=== PATIENT | male | born 1985 | race American Indian/Alaskan Native ===

== ENCOUNTER 2020-10-09 01:50 | Emergency (ER) | payer OTHER, SELFPAY ==
--- NOTE | 2020-10-09 02:33 | Emergency Department Report ---
ED Psych HPI - General Chief Complaint: Psych Stated Complaint: MH Time Seen by Provider: 10/09/20 02:30 Source: patient, EMS Mode of arrival: Ambulatory Limitations: No Limitations - History of Present Illness Initial Comments: Patient is a 35-year-old male who presents emergency room for a mental health evaluation. Patient states that he got into an argument with his little brother and made threats of killing him and his family called the police. The police then called EMS to transport the patient to the hospital for mental health evaluation since he made homicidal threats. Patient states he was just angry. Patient states he states he was getting kill his little brother. Patient denies suicidal homicidal ideations at this time. Patient states he does not want to hurt anybody but he was in agreement. Patient denies hallucinations. Patient states he is having racing thoughts now. Patient denies recent travel. Patient denies recent international travel. Patient denies exposure to the novel coronavirus. Patient denies sick contacts. Patient denies fever and chills. Patient denies cough. Patient denies diarrhea. Patient denies coming in contact with anybody with symptoms of the novel coronavirus. Complaint: other -: Sudden Associated Psychiatric Symptoms: racing thoughts History of same: No Quality: constant Improves With: none Worsens With: none Context: significant life stressor Associated Symptoms: denies: confusion, headache, shortness of breath, nausea, vomiting, syncope, insomnia Treatments Prior to Arrival: placed on mental he - Related Data Allergies Allergy/AdvReac Type Severity Reaction Status Date / Time No Known Allergies Allergy Unverified 10/09/20 02:40 ED Review of Systems ROS: Stated complaint: MH Other details as noted in HPI Constitutional: denies: chills, fever Eyes: denies: eye pain, eye discharge, vision change ENT: denies: ear pain, throat pain Respiratory: denies: cough, shortness of breath, wheezing Cardiovascular: denies: chest pain, palpitations Endocrine: no symptoms reported Gastrointestinal: denies: abdominal pain, nausea, diarrhea Genitourinary: denies: urgency, dysuria Musculoskeletal: denies: back pain, joint swelling, arthralgia Skin: denies: rash, lesions Neurological: denies: headache, weakness, paresthesias Psychiatric: as per HPI. denies: anxiety, depression Hematological/Lymphatic: denies: easy bleeding, easy bruising ED Past Medical Hx - Past Medical History Previous Medical History?: Yes Hx Psychiatric Treatment: Yes - Surgical History Past Surgical History?: No - Family History Family history: no significant - Social History Smoking Status: Never Smoker Substance Use Type: None ED Physical Exam - General Limitations: No Limitations General appearance: alert, in no apparent distress - Head Head exam: Present: atraumatic, normocephalic - Eye Eye exam: Present: normal appearance - ENT ENT exam: Present: mucous membranes moist - Neck Neck exam: Present: normal inspection - Respiratory Respiratory exam: Present: normal lung sounds bilaterally. Absent: respiratory distress - Cardiovascular Cardiovascular Exam: Present: regular rate, normal rhythm. Absent: systolic murmur, diastolic murmur, rubs, gallop - GI/Abdominal GI/Abdominal exam: Present: soft, normal bowel sounds - Rectal Rectal exam: Present: deferred - Extremities Exam Extremities exam: Present: normal inspection - Back Exam Back exam: Present: normal inspection - Neurological Exam Neurological exam: Present: alert, oriented X3 - Psychiatric Psychiatric exam: Present: flat affect. Absent: homicidal ideation, suicidal ideation - Skin Skin exam: Present: warm, dry, intact, normal color. Absent: rash ED Course Vital Signs 10/09/20 10/09/20 10/09/20 02:36 02:41 09:04 Temperature 98.2 F 99.0 F Pulse Rate 77 69 Respiratory 20 20 20 Rate Blood Pressure 118/61 114/68 [Right] O2 Sat by Pulse 99 99 99 Oximetry - Reevaluation(s) Reevaluation #1: Patient is medically clear. Patient remained in the ER as an ER hold until the patient is cleared by psychiatry team. 10/09/20 06:16 ED Medical Decision Making - Lab Data Result diagrams: 10/09/20 02:45 10/09/20 02:45 - Medical Decision Making Patient is a 35-year-old male with unknown psychiatric history that presents emergency room for mental health evaluation. Patient brought in by EMS because his family called the police because he was making homicidal threats towards his little brother. The police then called EMS to take the patient to the hospital. Patient had labs done which were essentially unremarkable. Patient is medically cleared. Patient will be in the ER as an ER hold until the patient is cleared by psychiatry mental health team. Patient final disposition will come from our psychiatry team. - Differential Diagnosis Homicidal ideation, aggressive behavior, Critical care attestation.: If time is entered above; I have spent that time in minutes in the direct care of this critically ill patient, excluding procedure time. ED Disposition Clinical Impression: Homicidal ideation, Aggressive behavior Disposition: DC-01 TO HOME OR SELFCARE Is pt being admited?: No Does the pt Need Aspirin: No Condition: Stable Additional Instructions: Professional and Agency Contacts To help Resolve Crises (07/11) [place] Crisis Line: Suicide Prevention Line: Crisis Text Line: Text START to [phone] Emergency: 911 Outpatient [facility] Behavioral Health Resources: KIRAN: [facility] [address], [place] [address] BRYCE: [facility] [address] [place] [address] Monday thru Monday - 8am - 5pm Call to schedule an assessment for mental health and substance abuse programs [place]SELIA: [facility] Address: [address] [place] [address] Monday thru Monday- 7am-2pm [facility] Address: [address] [place] [address] Monday thru Monday: 8:30AM-5PM Referrals: PRIMARY CARE, [Primary Care Provider] - 3-5 Days Time of Disposition: 06:15
[2020-10-09 03:01] LABS: Basophils % (Auto) 0.4 % (0.0-1.8); Eosinophils # (Auto) 0.1 K/mm3 (0.0-0.4); Eosinophils % (Auto) 0.9 % (0.0-4.3); Hematocrit 42.6 % (35.5-45.6); Hemoglobin 14.9 gm/dl (11.8-15.2); Lymphocytes # (Auto) 1.5 K/mm3 (1.2-5.4); Lymphocytes % (Auto) 22.8 % (13.4-35.0); Mean Corpuscular HGB Conc 35 % (32-34); Mean Corpuscular Volume 102 fl (84-94); Monocytes # (Auto) 0.8 K/mm3 (0.0-0.8); Monocytes % (Auto) 12.3 % (0.0-7.3); Platelet Count 265 K/mm3 (140-440); Red Blood Count 4.16 M/mm3 (3.65-5.03); Red Cell Distribution Width 13.2 % (13.2-15.2)
[2020-10-09 03:19] LABS: BUN/Creatinine Ratio 13; Blood Urea Nitrogen 13 mg/dL (9-20); Calcium 9.4 mg/dL (8.4-10.2); Hemolysis Index 11
[2020-10-09 08:01] LABS: Amphetamine Screen,Urine Negative; Benzodiazepines Screen,Urine Negative; Cocaine Screen,Urine Negative; Methadone Screen,Urine Negative; Opiate Screen,Urine Negative
[2020-10-09 08:23] LABS: Cannabinoid Screen,Urine PRESUMPTIVE POSITIVE
[2020-10-09 08:40] LABS: Bacteria,Urine 1+ /HPF (Negative); Bilirubin,Urine NEG (Negative); Blood,Urine NEG (Negative); Color,Urine Yellow (Yellow); Mucus,Urine 3+ /HPF
--- NOTE | 2020-10-09 11:18 | Event Note ---
S: No concerns O: Stable vital signs, patient appears well and comfortable A: homicidal ideation, marijuana dependence. Patient is medically clear for psychiatric care P: Awaiting treatment recommendations by psychiatric team
--- NOTE | 2020-10-09 11:57 | Progress Note ---
Subjective - Reason for Consult Consult date: 10/09/20 Reason for consult: Homicidal Ideation - Chief Complaint Chief complaint: Per Nurse Note: 0500-Have asked patient several times for urine specimen and explained why needed. Patient begins to complain loudly and gets up and starts pacing across room and then lays back down and goes to sleep. Mental Status Exam - Vital signs Last Vital Signs Temp 99.0 F 10/09/20 09:04 Pulse 69 10/09/20 09:04 Resp 20 10/09/20 09:04 BP 114/68 10/09/20 09:04 Pulse Ox 99 10/09/20 09:04
--- NOTE | 2020-10-09 12:09 | Consultation ---
History of Present Illness - Reason for Consult Consult date: 10/09/20 Reason for consult: Hi - Chief Complaint Chief complaint: Per ED Note: Patient is a 35-year-old male who presents emergency room for a mental health evaluation. Patient states that he got into an argument with his little brother and made threats of killing him and his family called the police. The police then called EMS to transport the patient to the hospital for mental health e valuation since he made homicidal threats. Patient states he was just angry. Patient states he states he was getting kill his little brother. Patient denies suicidal homicidal ideations at this time. Patient states he does not want to hurt anybody but he was in agreement. Patient denies hallucinations. Patient states he is having racing thoughts now. Ernst Lowry is a 35 year old male who presents to the Ed for homicidal ideation Patient was seen resting in the room. Patient is talkative and paranoid, he states " I let my anger get the best of me." Patient states he states he was diagnosed with schizophrenia but he has never taken psychotropic medications. Patient states " the government give people to arrest.' He reports talking to himself and when asked about hallucinations he states " I don't see or hear things, I did not say that." He denies suicidal/ homicidal ideation. PAST PSYCHIATRIC HISTORY: Diagnoses: schizophrenia Suicide attempts or Self-harm behavior: denies Prior psychiatric hospitalizations: yes Substance Abuse history: denies Previous psychiatric medications tried: noncompliant Outpatient treatment: n/a PAST MEDICAL HISTORY: n/a Family Psychiatric History: None reported or documented SOCIAL HISTORY Marital Status: no Living Arrangements: n/a Employment Status: n/a Access to guns/weapons: n/a Education: n/a History of Abuse: n/a Legal History: n/a REVIEW OF SYSTEMS ROS cannot be reliably obtained from the patient due to his confusion MENTAL STATUS EXAMINATION General Appearance and Behavior: Age appropriate, good hygiene, wearing appropriate clothes, uncooperative polite with questioning. Cooperation: cooperative Psychomotor Behavior: Psychomotor agitation Mood: angry Affect and affective range: irritable Thought Process: circumstantial Thought Content: Paranoid Speech: Normal volume, Regular rate and rhythm Intellectual Functioning: Poor Suicidal Ideation: Denied Homicidal Ideation: Denied Impulse Control: impaired Insight and Judgment: limited Memory: memory impaired Attention:Distractible Orientation: Alert and oriented Diagnoses:Schizophrenia F20.9 Current Visit: Yes Status: Acute RECOMMENDATIONS 1013 start Risperidal 1mg po BID Start Trazodone 50mg po qhs Start Vistaril 25mg po BID Risks, benefits and alternatives of medications discussed with the patient, questions answered and consent obtained from patient. PSYCHOTHERAPY: Supportive psychotherapy provided MEDICAL: Per primary team DELIRIUM PRECAUTIONS: Please re-orient patient frequently, keep lights on during the day, and minimize benzodiazepines and opiates as these medications could worsen patient's confusion. 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 Please contact with any questions and/or concerns. Medications and Allergies Allergies Allergy/AdvReac Type Severity Reaction Status Date / Time No Known Allergies Allergy Unverified 10/09/20 02:40 Home Medications Medication Instructions Recorded Confirmed Last Taken Type No Known Home Medications [No 10/10/20 10/10/20 Unknown History Reported Home Medications] Mental Status Exam - Vital signs Last Vital Signs Temp 99.0 F 10/09/20 09:04 Pulse 69 10/09/20 09:04 Resp 20 10/09/20 09:04 BP 114/68 10/09/20 09:04 Pulse Ox 99 10/09/20 09:04 Results Result Diagrams: 10/09/20 02:45 10/09/20 02:45 Abnormal lab results 10/09/20 10/09/20 10/09/20 Range/Units 02:45 02:45 02:45 MCV 102 H (84-94) fl MCH 36 H (28-32) pg MCHC 35 H (32-34) % [place] % (Auto) 12.3 H (0.0-7.3) % Ur Specific [place] (1.003-1.030) Urine WBC (Auto) (0.0-6.0) /HPF Salicylates < 0.3 L (2.8-20.0) mg/dL Acetaminophen 5.0 L (10.0-30.0) ug/mL 10/09/20 Range/Units Unknown MCV (84-94) fl MCH (28-32) pg MCHC (32-34) % [place] % (Auto) (0.0-7.3) % Ur Specific [place] 1.031 H (1.003-1.030) Urine WBC (Auto) 46.0 H (0.0-6.0) /HPF Salicylates (2.8-20.0) mg/dL Acetaminophen (10.0-30.0) ug/mL All other labs normal.
[2020-10-09] MEDS: risperiDONE 1 MG TAB PO SCH (22:19)
[2020-10-10 09:10] VITALS: BP 129/80
[2020-10-10] MEDS: risperiDONE 1 MG TAB PO SCH (09:59)
[2020-10-10] MEDS ORDERED: LIDOCAINE-MPF (1%) 10 MG/1 ML VIAL 5 ML INFILTRATI ONE (10:33)
[2020-10-10] MEDS ORDERED: AZITHROMYCIN 1 GM ORAL PWDR PACKET PO ONE (10:33)
--- NOTE | 2020-10-10 10:36 | Event Note ---
Date: 10/10/20 ER medical records reviewed and appreciated, psychiatric recommendations reviewed and appreciated, nursing notes reviewed and appreciated. Laboratory studies, vital signs are reviewed and appreciated. The patient is currently awake, laying down on chair, calm and cooperative. He states states he is not having physical pain. He denies acute medical complaints at this time. Laboratory studies are reviewed and appreciated. Urinalysis specifically is reviewed and appreciated. Given large leukocyte esterase, 46 WBC, young age, this is likely chlamydia cystitis. He will be treated empirically with ceftriaxone and azithromycin. Culture pending at this time. Vital Signs 10/09/20 10/09/20 10/09/20 02:36 02:41 09:04 Temperature 98.2 F 99.0 F Pulse Rate 77 69 Respiratory 20 20 20 Rate Blood Pressure 118/61 114/68 [Right] O2 Sat by Pulse 99 99 99 Oximetry 10/09/20 10/09/20 10/10/20 20:20 20:22 09:09 Temperature 98.6 F 96.8 F L Pulse Rate 72 94 H Respiratory 20 20 20 Rate Blood Pressure 122/72 129/80 [Right] O2 Sat by Pulse 99 99 98 Oximetry Lab Results 10/09/20 10/09/20 10/09/20 Range/Units 02:45 02:45 02:45 WBC 6.8 (4.5-11.0) K/mm3 RBC 4.16 (3.65-5.03) M/mm3 Hgb 14.9 (11.8-15.2) gm/dl Hct 42.6 (35.5-45.6) % MCV 102 H (84-94) fl MCH 36 H (28-32) pg MCHC 35 H (32-34) % RDW 13.2 (13.2-15.2) % Plt Count 265 (140-440) K/mm3 Lymph % (Auto) 22.8 (13.4-35.0) % [place] % (Auto) 12.3 H (0.0-7.3) % Eos % (Auto) 0.9 (0.0-4.3) % Baso % (Auto) 0.4 (0.0-1.8) % Lymph # (Auto) 1.5 (1.2-5.4) K/mm3 [place] # (Auto) 0.8 (0.0-0.8) K/mm3 Eos # (Auto) 0.1 (0.0-0.4) K/mm3 Baso # (Auto) 0.0 (0.0-0.1) K/mm3 Seg Neutrophils % 63.6 (40.0-70.0) % Seg Neutrophils # 4.3 (1.8-7.7) K/mm3 Sodium 140 (137-145) mmol/L Potassium 3.8 (3.6-5.0) mmol/L Chloride 102.7 (98-107) mmol/L Carbon Dioxide 27 (22-30) mmol/L Anion Gap 14 mmol/L BUN 13 (9-20) mg/dL Creatinine 1.0 (0.8-1.3) mg/dL Estimated GFR > 60 ml/min BUN/Creatinine Ratio 13 % Glucose 78 (75-100) mg/dL Calcium 9.4 (8.4-10.2) mg/dL Urine Color (Yellow) Urine Turbidity (Clear) Urine pH (5.0-7.0) Ur Specific [place] (1.003-1.030) Urine Protein (Negative) mg/dL Urine Glucose (UA) (Negative) mg/dL Urine Ketones (Negative) mg/dL Urine Blood (Negative) Urine Nitrite (Negative) Urine Bilirubin (Negative) Urine Urobilinogen (<2.0) mg/dL Ur Leukocyte Esterase (Negative) Urine WBC (Auto) (0.0-6.0) /HPF Urine RBC (Auto) (0.0-6.0) /HPF Urine Bacteria (Auto) (Negative) /HPF Urine Mucus /HPF Salicylates < 0.3 L (2.8-20.0) mg/dL Urine Opiates Screen Urine Methadone Screen Acetaminophen (10.0-30.0) ug/mL Ur Barbiturates Screen Ur Phencyclidine Scrn Ur Amphetamines Screen U Benzodiazepines Scrn Urine Cocaine Screen U Marijuana (THC) Screen Drugs of Abuse Note Plasma/Serum Alcohol (0-0.07) % Coronavirus (PCR) (Negative) 10/09/20 10/09/20 10/09/20 Range/Units 02:45 02:45 Unknown WBC (4.5-11.0) K/mm3 RBC (3.65-5.03) M/mm3 Hgb (11.8-15.2) gm/dl Hct (35.5-45.6) % MCV (84-94) fl MCH (28-32) pg MCHC (32-34) % RDW (13.2-15.2) % Plt Count (140-440) K/mm3 Lymph % (Auto) (13.4-35.0) % [place] % (Auto) (0.0-7.3) % Eos % (Auto) (0.0-4.3) % Baso % (Auto) (0.0-1.8) % Lymph # (Auto) (1.2-5.4) K/mm3 [place] # (Auto) (0.0-0.8) K/mm3 Eos # (Auto) (0.0-0.4) K/mm3 Baso # (Auto) (0.0-0.1) K/mm3 Seg Neutrophils % (40.0-70.0) % Seg Neutrophils # (1.8-7.7) K/mm3 Sodium (137-145) mmol/L Potassium (3.6-5.0) mmol/L Chloride (98-107) mmol/L Carbon Dioxide (22-30) mmol/L Anion Gap mmol/L BUN (9-20) mg/dL Creatinine (0.8-1.3) mg/dL Estimated GFR ml/min BUN/Creatinine Ratio % Glucose (75-100) mg/dL Calcium (8.4-10.2) mg/dL Urine Color Yellow (Yellow) Urine Turbidity Slightly-cloudy (Clear) Urine pH 5.0 (5.0-7.0) Ur Specific [place] 1.031 H (1.003-1.030) Urine Protein 30 mg/dl (Negative) mg/dL Urine Glucose (UA) Neg (Negative) mg/dL Urine Ketones Tr (Negative) mg/dL Urine Blood Neg (Negative) Urine Nitrite Neg (Negative) Urine Bilirubin Neg (Negative) Urine Urobilinogen 2.0 (<2.0) mg/dL Ur Leukocyte Esterase Lg (Negative) Urine WBC (Auto) 46.0 H (0.0-6.0) /HPF Urine RBC (Auto) 8.0 (0.0-6.0) /HPF Urine Bacteria (Auto) 1+ (Negative) /HPF Urine Mucus 3+ /HPF Salicylates (2.8-20.0) mg/dL Urine Opiates Screen Urine Methadone Screen Acetaminophen 5.0 L (10.0-30.0) ug/mL Ur Barbiturates Screen Ur Phencyclidine Scrn Ur Amphetamines Screen U Benzodiazepines Scrn Urine Cocaine Screen U Marijuana (THC) Screen Drugs of Abuse Note Plasma/Serum Alcohol < 0.01 (0-0.07) % Coronavirus (PCR) (Negative) 10/09/20 10/09/20 Range/Units Unknown Unknown WBC (4.5-11.0) K/mm3 RBC (3.65-5.03) M/mm3 Hgb (11.8-15.2) gm/dl Hct (35.5-45.6) % MCV (84-94) fl MCH (28-32) pg MCHC (32-34) % RDW (13.2-15.2) % Plt Count (140-440) K/mm3 Lymph % (Auto) (13.4-35.0) % [place] % (Auto) (0.0-7.3) % Eos % (Auto) (0.0-4.3) % Baso % (Auto) (0.0-1.8) % Lymph # (Auto) (1.2-5.4) K/mm3 [place] # (Auto) (0.0-0.8) K/mm3 Eos # (Auto) (0.0-0.4) K/mm3 Baso # (Auto) (0.0-0.1) K/mm3 Seg Neutrophils % (40.0-70.0) % Seg Neutrophils # (1.8-7.7) K/mm3 Sodium (137-145) mmol/L Potassium (3.6-5.0) mmol/L Chloride (98-107) mmol/L Carbon Dioxide (22-30) mmol/L Anion Gap mmol/L BUN (9-20) mg/dL Creatinine (0.8-1.3) mg/dL Estimated GFR ml/min BUN/Creatinine Ratio % Glucose (75-100) mg/dL Calcium (8.4-10.2) mg/dL Urine Color (Yellow) Urine Turbidity (Clear) Urine pH (5.0-7.0) Ur Specific [place] (1.003-1.030) Urine Protein (Negative) mg/dL Urine Glucose (UA) (Negative) mg/dL Urine Ketones (Negative) mg/dL Urine Blood (Negative) Urine Nitrite (Negative) Urine Bilirubin (Negative) Urine Urobilinogen (<2.0) mg/dL Ur Leukocyte Esterase (Negative) Urine WBC (Auto) (0.0-6.0) /HPF Urine RBC (Auto) (0.0-6.0) /HPF Urine Bacteria (Auto) (Negative) /HPF Urine Mucus /HPF Salicylates (2.8-20.0) mg/dL Urine Opiates Screen Negative Urine Methadone Screen Negative Acetaminophen (10.0-30.0) ug/mL Ur Barbiturates Screen Negative Ur Phencyclidine Scrn Negative Ur Amphetamines Screen Negative U Benzodiazepines Scrn Negative Urine Cocaine Screen Negative U Marijuana (THC) Screen Presumptive positive Drugs of Abuse Note Disclamer Plasma/Serum Alcohol (0-0.07) % Coronavirus (PCR) Negative (Negative)
[2020-10-10] MEDS ORDERED: ACETAMINOPHEN 325 MG TAB PO PRN (10:50)
[2020-10-10] MEDS ORDERED: ONDANSETRON 4 MG ODT TAB PO PRN (10:50)
[2020-10-10] MEDS ORDERED: diphenhydrAMINE 25 MG CAP PO PRN (10:50)
[2020-10-10] MEDS ORDERED: LORazepam 2 MG/ML VIAL IM PRN (10:50)
--- NOTE | 2020-10-10 13:59 | Progress Note ---
Subjective Date of service: 10/10/20 Subjective Comment: Per Nurse Note: PT STATES " I DONT WANT TO HURT MYSELF OR ANYBODY. THEY JUST PUT ME WITH PEOPLE WHO THEY KNOW I HAVE PROBLEMS WITH. I JUST WANT TO BE BY MYSELF AND LIVE MY LIFE IN [place]." Patient was seen resting in the room. Patient reports feeling better. He states Risperdal is working for him. Nurse states patient was noncompliant with medication yesterday but took med this morning. The patient states mood as " alright." He reports sleeping and eating well. He denies any current suicidal/homicidal ideation and denies AVHs. No reported of aggressive behaviors by staff. REVIEW OF SYSTEMS Constitutional: Negative for weight loss ENT: Negative for stridor Respiratory: Negative for cough or hemoptysis All other systems reviewed and are negative MENTAL STATUS EXAMINATION General Appearance and Behavior: Age appropriate, good hygiene, wearing appropriate clothes, uncooperative polite with questioning. Cooperation: cooperative Psychomotor Behavior: Psychomotor agitation Mood: Calm Affect and affective range: Congruent with states mood Thought Process: goal directed Thought Content: within reality Speech: Normal volume, Regular rate and rhythm Intellectual Functioning: average Suicidal Ideation: Denied Homicidal Ideation: Denied Impulse Control: impaired Insight and Judgment: limited Memory: memory impaired Attention:Distractible Orientation: Alert and oriented Diagnoses:Schizophrenia F20.9 Current Visit: Yes Status: Acute RECOMMENDATIONS 1013 start Risperdal 1mg po BID Start Trazodone 50mg po qhs Start Vistaril 25mg po BID Risks, benefits and alternatives of medications discussed with the patient, questions answered and consent obtained from patient. PSYCHOTHERAPY: Supportive psychotherapy provided MEDICAL: Per primary team DELIRIUM PRECAUTIONS: Please re-orient patient frequently, keep lights on during the day, and minimize benzodiazepines and opiates as these medications could worsen patient's confusion. 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 Please contact with any questions and/or concerns. Medications and Allergies Allergies Allergy/AdvReac Type Severity Reaction Status Date / Time No Known Allergies Allergy Unverified 10/09/20 02:40 Home Medications Medication Instructions Recorded Confirmed Last Taken Type No Known Home Medications [No 10/10/20 10/10/20 Unknown History Reported Home Medications] Active Meds: Active Medications Acetaminophen (Acetaminophen 325 Mg Tab) 650 mg PO Q6HR PRN PRN Reason: PAIN Diphenhydramine HCl (Diphenhydramine 25 Mg Cap) 50 mg PO QHS PRN PRN Reason: Insomnia Lorazepam (Lorazepam 2 Mg/Ml Vial) 2 mg IM Q4HR PRN PRN Reason: Agitation Ondansetron HCl (Ondansetron 4 Mg Odt Tab) 4 mg PO Q6HR PRN PRN Reason: Nausea Risperidone (Risperidone 1 Mg Tab) 1 mg PO BID HEATHER Last Admin: 10/10/20 09:59 Dose: 1 mg Documented by: Results - Results Labs/Vitals: Laboratory Last Values WBC 6.8 K/mm3 (4.5-11.0) 10/09/20 02:45 RBC 4.16 M/mm3 (3.65-5.03) 10/09/20 02:45 Hgb 14.9 gm/dl (11.8-15.2) 10/09/20 02:45 Hct 42.6 % (35.5-45.6) 10/09/20 02:45 MCV 102 fl (84-94) H 10/09/20 02:45 MCH 36 pg (28-32) H 10/09/20 02:45 MCHC 35 % (32-34) H 10/09/20 02:45 RDW 13.2 % (13.2-15.2) 10/09/20 02:45 Plt Count 265 K/mm3 (140-440) 10/09/20 02:45 Lymph % (Auto) 22.8 % (13.4-35.0) 10/09/20 02:45 [place] % (Auto) 12.3 % (0.0-7.3) H 10/09/20 02:45 Eos % (Auto) 0.9 % (0.0-4.3) 10/09/20 02:45 Baso % (Auto) 0.4 % (0.0-1.8) 10/09/20 02:45 Lymph # (Auto) 1.5 K/mm3 (1.2-5.4) 10/09/20 02:45 [place] # (Auto) 0.8 K/mm3 (0.0-0.8) 10/09/20 02:45 Eos # (Auto) 0.1 K/mm3 (0.0-0.4) 10/09/20 02:45 Baso # (Auto) 0.0 K/mm3 (0.0-0.1) 10/09/20 02:45 Seg Neutrophils % 63.6 % (40.0-70.0) 10/09/20 02:45 Seg Neutrophils # 4.3 K/mm3 (1.8-7.7) 10/09/20 02:45 Sodium 140 mmol/L (137-145) 10/09/20 02:45 Potassium 3.8 mmol/L (3.6-5.0) 10/09/20 02:45 Chloride 102.7 mmol/L (98-107) 10/09/20 02:45 Carbon Dioxide 27 mmol/L (22-30) 10/09/20 02:45 Anion Gap 14 mmol/L 10/09/20 02:45 BUN 13 mg/dL (9-20) 10/09/20 02:45 Creatinine 1.0 mg/dL (0.8-1.3) 10/09/20 02:45 Estimated GFR > 60 ml/min 10/09/20 02:45 BUN/Creatinine Ratio 13 % 10/09/20 02:45 Glucose 78 mg/dL (75-100) 10/09/20 02:45 Calcium 9.4 mg/dL (8.4-10.2) 10/09/20 02:45 Urine Color Yellow (Yellow) 10/09/20 Unknown Urine Turbidity Slightly-cloudy (Clear) 10/09/20 Unknown Urine pH 5.0 (5.0-7.0) 10/09/20 Unknown Ur Specific [place] 1.031 (1.003-1.030) H 10/09/20 Unknown Urine Protein 30 mg/dl mg/dL (Negative) 10/09/20 Unknown Urine Glucose (UA) Neg mg/dL (Negative) 10/09/20 Unknown Urine Ketones Tr mg/dL (Negative) 10/09/20 Unknown Urine Blood Neg (Negative) 10/09/20 Unknown Urine Nitrite Neg (Negative) 10/09/20 Unknown Urine Bilirubin Neg (Negative) 10/09/20 Unknown Urine Urobilinogen 2.0 mg/dL (<2.0) 10/09/20 Unknown Ur Leukocyte Esterase Lg (Negative) 10/09/20 Unknown Urine WBC (Auto) 46.0 /HPF (0.0-6.0) H 10/09/20 Unknown Urine RBC (Auto) 8.0 /HPF (0.0-6.0) 10/09/20 Unknown Urine Bacteria (Auto) 1+ /HPF (Negative) 10/09/20 Unknown Urine Mucus 3+ /HPF 10/09/20 Unknown Salicylates < 0.3 mg/dL (2.8-20.0) L 10/09/20 02:45 Urine Opiates Screen Negative 10/09/20 Unknown Urine Methadone Screen Negative 10/09/20 Unknown Acetaminophen 5.0 ug/mL (10.0-30.0) L 10/09/20 02:45 Ur Barbiturates Screen Negative 10/09/20 Unknown Ur Phencyclidine Scrn Negative 10/09/20 Unknown Ur Amphetamines Screen Negative 10/09/20 Unknown U Benzodiazepines Scrn Negative 10/09/20 Unknown Urine Cocaine Screen Negative 10/09/20 Unknown U Marijuana (THC) Screen Presumptive positive 10/09/20 Unknown Drugs of Abuse Note Disclamer 10/09/20 Unknown Plasma/Serum Alcohol < 0.01 % (0-0.07) 10/09/20 02:45 Coronavirus (PCR) Negative (Negative) 10/09/20 Unknown Last Vital Signs Temp 96.8 F L 10/10/20 09:09 Pulse 94 H 10/10/20 09:09 Resp 20 10/10/20 09:09 BP 129/80 10/10/20 09:09 Pulse Ox 98 10/10/20 09:09
== END 2020-10-10 20:00 | disposition home or self-care (01) ==
LOC: ED 01:50
DX: R45.850 Homicidal ideations (principal); Z20.822 Contact with and (suspected) exposure to COVID-19; R45.6 Violent behavior; Z98.890 Other specified postprocedural states; Z79.899 Other long term (current) drug therapy
CPT/HCPCS: 36415; 80048; 80307; 81001; 85025; 87086; 96372; 99285; J0696; U0003; 80320; G0480